=== PATIENT | female | born 1960 | race Caucasian/White ===

== ENCOUNTER 2018-11-16 07:59 | Day surgery (SDC) | payer BC ==
[~2018-11-16] VITALS: Ht 167.6 cm; Wt 72.1 kg
[~2018-11-16 07:59] MED LIST: CALCIUM +D PO; CRESTOR10 MG PO; HUMIRA40 MG/0.8 SC; LEVOTHYROXIN50 MCG PO; LIOTHYRONINE5 MCG PO; MECLIZINE12.5 M1 PO; METO25TAB PO; ZOLOFT100 MG PO
[2018-11-16] MEDS ORDERED: [UNRECOGNIZED DRUG - OTHER] PO (10:33)
[2018-11-16 10:51] VITALS: BP 112/59
== END 2018-11-16 11:05 | disposition home or self-care (01) | DRG 607 ==
LOC: ORM 07:59
PROVIDERS: ATTEND Surgery
PROC: 0HBJXZZ Excision of Left Upper Leg Skin, External Approach (ICD-10-PCS; principal; 2018-11-16)
PROC: 0HBHXZZ Excision of Right Upper Leg Skin, External Approach (ICD-10-PCS; 2018-11-16)
PROC: 0HBHXZZ Excision of Right Upper Leg Skin, External Approach (ICD-10-PCS; 2018-11-16)
DX: L90.5 Scar conditions and fibrosis of skin (principal); L73.2 Hidradenitis suppurativa; I10 Essential (primary) hypertension; E03.9 Hypothyroidism, unspecified; Z79.899 Other long term (current) drug therapy
CPT/HCPCS: J0131